=== PATIENT | male | born 1950 | race Caucasian/White ===

== ENCOUNTER 2022-05-19 08:24 | Outpatient (CLI) | payer OTHER, SELFPAY | END 2022-05-19 08:25 | disposition home or self-care (01) | LOC: NFLDREF 05-20 01:27 | PROVIDERS: PCP Family Medicine; Referring Provider Family Medicine; Visit Provider Family Medicine | DX: Z00.00 Encounter for general adult medical examination without abnormal findings (principal); E78.5 Hyperlipidemia, unspecified; I10 Essential (primary) hypertension; Z12.5 Encounter for screening for malignant neoplasm of prostate | CPT/HCPCS: 80053; 80061; 84153 ==

== ENCOUNTER 2023-06-09 13:27 | Outpatient (CLI) | payer OTHER, SELFPAY | END 2023-06-09 13:28 | disposition home or self-care (01) | LOC: NFLDREF 06-10 07:58 | PROVIDERS: PCP Family Medicine; Referring Provider Family Medicine; Visit Provider Family Medicine | DX: E78.5 Hyperlipidemia, unspecified (principal); E87.5 Hyperkalemia; I10 Essential (primary) hypertension; Z12.5 Encounter for screening for malignant neoplasm of prostate | CPT/HCPCS: 80053; 80061; G0103 ==

== ENCOUNTER 2023-06-23 07:45 | Outpatient (CLI) | payer OTHER, SELFPAY ==
--- NOTE | 2023-06-23 08:00 | CT_ITS ---
Patient: DIONNE DURAN Facility:?[facility] RIS Patient ID:?[id number] Site Patient ID:?[id number]. Site :?[id number] Study:?CT-Chest LUNG SCREENING-06/23/2023 8:28:55 AM Ordering Physician:?DR. CHOUDHARY Final Report: INDICATION: Lung cancer screening. History of smoking. High risk patient with greater than 20 pack-year smoking history. TECHNIQUE: Low-dose lung cancer screening non-contrast CT chest. Dose reduction techniques were used. COMPARISON: None. FINDINGS: NODULES: 3.7 millimeter nodule posterior aspect of the right upper lobe, 3/54. 4.7 millimeter nodule left lower lobe, 3/110. LUNGS AND PLEURA: Emphysema. Patchy areas of scarring bilaterally. MEDIASTINUM: Visualized thyroid is normal. No enlarged lymph nodes. CORONARY ARTERY CALCIFICATION: Present. LIMITED UPPER ABDOMEN: Right renal cysts are present measuring up to approximately 2.3 cm. No adrenal nodule. Atherosclerotic changes are present. No calcified gallstones. MUSCULOSKELETAL: No fracture. IMPRESSION: Small bilateral pulmonary nodules measuring up to 4.7 millimeters. LUNG-RADS CATEGORY: 2: Benign. RADIOLOGIST RECOMMENDATION: Continue annual screening with low-dose CT chest in 12 months. Please note that all CT scans at this facility use dose modulation, iterative reconstruction, and/or weight-based dosing when appropriate to reduce radiation dose to as low as reasonably achievable. Dictated by Presley Cifuentes MD @ 06/23/2023 2:48:01 PM Signed by:?Presley Cifuentes MD @06/23/2023 2:48:01 PM (Electronic Signature)
== END 2023-06-23 07:46 | disposition home or self-care (01) ==
PROVIDERS: PCP Family Medicine; Visit Provider Family Medicine
DX: Z12.2 Encounter for screening for malignant neoplasm of respiratory organs (principal); R91.8 Other nonspecific abnormal finding of lung field; J44.9 Chronic obstructive pulmonary disease, unspecified; Z72.0 Tobacco use
CPT/HCPCS: 71271

== ENCOUNTER 2024-02-09 15:50 | Outpatient (CLI) | payer OTHER, SELFPAY | END 2024-02-09 15:51 | disposition home or self-care (01) | LOC: LKVREF 15:51 | PROVIDERS: PCP Family Medicine; Visit Provider Family Medicine | DX: G62.9 Polyneuropathy, unspecified (principal); R00.0 Tachycardia, unspecified | CPT/HCPCS: 82607; 84443 ==

== ENCOUNTER 2024-06-25 07:40 | Outpatient (CLI) | payer OTHER, SELFPAY ==
--- NOTE | 2024-06-25 08:00 | CRLHL7_ITS ---
For Patients: As a result of the Century Cures Act, medical imaging exams and procedure reports are released immediately into your electronic medical record. You may view this report before your referring provider. If you have questions, please contact your health care provider. INDICATION: Lung cancer screening. TECHNIQUE: Low-dose lung cancer screening non-contrast CT chest. Dose reduction techniques were used. COMPARISON: None. FINDINGS: NODULES: Few small pulmonary nodules measuring up to 5 millimeters adjacent to the right major fissure . LUNGS AND PLEURA: Normal. MEDIASTINUM: Normal. CORONARY ARTERY CALCIFICATION: Present. LIMITED UPPER ABDOMEN: Low-attenuation lesions right kidney incompletely assessed MUSCULOSKELETAL: Normal. IMPRESSION: 1. Few small pulmonary nodules measure up to 5 millimeters. LUNG-RADS CATEGORY: 2: Benign. RADIOLOGIST RECOMMENDATION: Continue annual screening with low-dose CT chest in 12 months. Please note that all CT scans at this facility use dose modulation, iterative reconstruction, and/or weight-based dosing when appropriate to reduce radiation dose to as low as reasonably achievable. Dictated by Rafaela Rea MD @ 06/25/2024 9:20:24 AM (Electronically Signed)
== END 2024-06-25 07:41 | disposition home or self-care (01) ==
LOC: CT 07:42
PROVIDERS: PCP Family Medicine; Visit Provider Family Medicine
DX: Z12.2 Encounter for screening for malignant neoplasm of respiratory organs (principal); R91.8 Other nonspecific abnormal finding of lung field; Z72.0 Tobacco use
CPT/HCPCS: 71271

== ENCOUNTER 2025-01-09 08:10 | Outpatient (CLI) | payer MEDICARE, SELFPAY | END 2025-01-09 08:11 | disposition home or self-care (01) | LOC: NFLDREF 01-12 18:44 | PROVIDERS: PCP Family Medicine; Referring Provider Family Medicine; Visit Provider Family Medicine | DX: Z00.00 Encounter for general adult medical examination without abnormal findings (principal); I10 Essential (primary) hypertension; E78.5 Hyperlipidemia, unspecified; Z12.5 Encounter for screening for malignant neoplasm of prostate | CPT/HCPCS: 80053; 80061; 82043; 82570; G0103 ==